=== PATIENT | female | born 1950 | race Caucasian/White ===

== ENCOUNTER → 2018-11-06 | Outpatient (CLI) | payer OTHER, MEDICARE ==
[~2018-11-06] MED LIST: AMITRIPTYLINE H25 M2 PO; AMITRIPTYLINE H50 M4 PO; AMITRIPTYLINE H75 M1 PO; ANTIVERT25 MG PO; APAP650 PO; ATIVAN0.5 MG PO; ATORVASTATIN CA40 MG PO; CLONAZEPAM 1 MG1 M1 PO; CYMBALTA60 MG PO; GABAPENTIN 100100 MG PO; GLUCOPHAGE XR500 MG PO; HYDROCHLOROTHIA25 M2 PO; JARDIANCE10 MG PO; KLONOPIN1 MG PO; KLOR-CON 1010 MEQ PO; LIDODERM 5%1 PATC1 TRANSDERM; LYRICA 75 MG CA75 MG PO; NORVASC10 MG PO; ORADENT 0.1% DEN5 GM; SINGULAIR 10 MG10 MG PO; SKELAXIN 800 M800 M1 PO; STARLIX120 MG PO; SYMBICORT160 MCG/4. INH; TENORMIN25 MG PO; TOPROL XL25 MG PO; TRAMADOL 50 MG50 MG PO; VENTOLIN HFA 1818 GM INH; VITAMIN D1000 UNI1 PO; WELLBUTRIN SR150 MG PO; ZYRTEC10 MG PO
[2018-11-06 12:54] VITALS: BP 137/53; BP 160/55
[2018-11-06 15:04] VITALS: BP 147/52; BP 160/55; BP 184/55
--- NOTE | 2018-11-06 18:18 | NUR ---
TRANSFUSED 2 UNITS PRBC'S AND TOLERATED WELL. MAX RATE ON 2ND UNIT 120ML/HR DUE TO ELEVATED BLOOD PRESSURE. ADMISSION HISTORY AND ASSESSMENT COMPLETED. PERIPHERAL IV REMOVED. DISMISSED IN STABLE CONDITION.
== END ==
LOC: OPONC 09:50
DX: D64.9 Anemia, unspecified (principal)
CPT/HCPCS: 91030